=== PATIENT | female | born 1960 | race Caucasian/White ===

== ENCOUNTER → 2017-11-20 15:38 | Outpatient (CLI) | payer OTHER, SELFPAY ==
--- NOTE | 2017-11-20 | DI.CT.S_ITS ---
PROCEDURE: CT SINUS SCREEN WO CON INDICATIONS: CHRONIC SINITUS AND HEADACHE TECHNIQUE: Noncontrast 3.0 mm axial images acquired from the frontal sinuses to the mid-sella, with coronal and sagittal reformats. For radiation dose reduction, the following was used: automated exposure control, adjustment of mA and/or kV according to patient size. COMPARISON: None. FINDINGS: Image quality: Excellent. Maxillary Sinuses: No bony remodeling or destruction. Sinuses are clear. Ethmoid Air Cells: No bony remodeling or destruction. Sinuses are clear. Sphenoid Sinuses: No bony remodeling or destruction. Sinuses are clear. Frontal Sinuses: No bony remodeling or destruction. Sinuses are clear. Ostiomeatal Complexes: Bilateral antrectomy has been performed. No Jose cells. Miscellaneous: Visualized intra-orbital contents are normal. No bahman bullosa or paradoxical turbinate curvature. Middle turbinectomy has been performed bilaterally. No nasal septal deviation. IMPRESSION: 1. Postsurgical sequelae. 2. No significant sinusitis. Dictated by: Nilam Edouard M.D. on 11/20/2017 at 16:26 Approved by: Nilam Edouard M.D. on 11/20/2017 at 16:27
== END ==
PROVIDERS: Family Provider Nurse Practitioner; PCP Family Medicine; Visit Provider Otolaryngology
DX: J32.9 Chronic sinusitis, unspecified (principal); R51 Headache
CPT/HCPCS: 70486

== ENCOUNTER 2019-05-18 14:38 | Emergency (ER) | payer OTHER, SELFPAY ==
[2019-05-18 14:43] VITALS: BP 158/79; PULSE 68; RESP 16; TEMP 36.4; O2SAT 99
[2019-05-18] MEDS: SODIUM CHLORIDE 0.9% 1,000 ML 1000 ML IV (17:42)
[2019-05-18] MEDS: METOCLOPRAMIDE 10 MG/2 ML INJ IV (17:42)
[2019-05-18] MEDS: KETOROLAC 60 MG/2 ML VIAL 30 MG IV (17:42)
[2019-05-18] MEDS: diphenhydrAMINE 50 MG/ML VIAL IV (17:42)
--- NOTE | 2019-05-18 17:50 | PC.NURSE ---
reports, frontal headache, left eye stabbing pain, sinus congestion. 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
[2019-05-18 19:09] VITALS: BP 127/71; PULSE 77; RESP 18; O2SAT 97
[2019-05-18] MEDS: DEXAMETHASONE 10 MG/ML VIAL IV (19:09)
[2019-05-18] MEDS: HYDROMORPHONE 1 MG INJ IV (20:02)
[2019-05-18] MEDS: SUMAtriptan 6 MG/0.5 ML VIAL SUBCUT (20:07)
--- NOTE | 2019-05-18 20:47 | ED_ITS ---
HPI - Headache <Manisha Elias, RV REPAIR TECHNICIAN-BC - Last Filed: 05/18/19 20:53> General Chief Complaint: Headache Stated Complaint: Migraine x3 days Time Seen by Provider: 05/18/19 17:03 Source: family Mode of arrival: Ambulatory Limitations: no limitations History of Present Illness HPI Narrative: The patient is a 59-year-old female nonsmoker presents with her for chief complaint of migraines. She has history of migraines. She states this 1 has been going on for 3 days. She has tried her Imitrex with no assistance. She complains of photophobia, phonophobia and nausea but no vomiting. She denies any fevers confusion or thunderclap sensation. She states that this is a typical migraine for her, the worse than usual as she does not usually need to come to the emergency department. She denies any numbness, tingling, weakness slurred speech etc. Related Data Home Medications Medication Instructions Recorded Confirmed acetaminophen 325 mg PO PRN #0 04/28/16 01/30/18 sumatriptan succinate [Imitrex] 50 mg PO QDAYP PRN #0 08/04/16 01/30/18 [virtussin a/c 100] #0 12/05/16 01/30/18 krill [id number]-4-dha-epa PO 01/30/18 01/30/18 sodium chloride 5 % eye drops EYE-BOTH ml 01/30/18 01/30/18 Previous Rx's Medication Instructions Recorded erenumab-aooe 140 mg/mL 140 mg SUBCUT QMONTH #1 ml 03/06/19 subcutaneous auto-injector sumatriptan succinate 100 mg tablet 100 mg PO ONCE #12 tab 03/11/19 rizatriptan 10 mg disintegrating See Rx Instructions PO .COMPLEX 04/29/19 tablet #10 tab Allergies Allergy/AdvReac Type Severity Reaction Status Date / Time azithromycin [AZITHROMYCIN] Allergy Severe RASH, Verified 04/29/19 15:18 SWELLING ciprofloxacin [CIPROFLOXACIN] Allergy Intermediate ITCHING Verified 04/29/19 15:18 clarithromycin Allergy Intermediate rash Verified 04/29/19 15:18 [CLARITHROMYCIN] fluconazole [From DIFLUCAN] Allergy Intermediate ITCHING Verified 04/29/19 15:18 Iodine and Iodide Containing Allergy Intermediate RASH, Verified 04/29/19 15:18 Produc ITCHING [IODINE AND IODIDE CONTAINING PRODUC] Milk Containing Products Allergy Intermediate POSITIVE Verified 04/29/19 15:18 [MILK CONTAINING PRODUCTS] SCRATCH TEST sulfamethoxazole Allergy Intermediate RASH, Verified 04/29/19 15:18 [SULFAMETHOXAZOLE] ITCHING topiramate [From TOPAMAX] Allergy Intermediate ITCHING Verified 04/29/19 15:18 coffee (Coffea arabica) Allergy Mild SKIN TEST Verified 04/29/19 15:18 [COFFEE (COFFEA ARABICA)] REACTION AT 'S OFFICE gluten [GLUTEN] Allergy Unknown GI UPSET, Verified 04/29/19 15:18 MIGRAINES clavulanic acid AdvReac Mild DIARRHEA Verified 04/29/19 15:18 [CLAVULANIC ACID] BEE STINGS Allergy Intermediate RASH/SWELLI Uncoded 04/29/19 15:18 NG Review of Systems <DAX Becker - Last Filed: 05/18/19 20:53> Review of Systems Narrative: GENERAL: Denies chills, fatigue, malaise, fever, sweats. HEENT: Denies sinus pain, ear pain, sore throat, difficulty swallowing, dizziness. RESPIRATORY: Denies dyspnea, cough, wheezing, hemoptysis, sputum. CARDIOVASCULAR: Denies chest pain, palpitations, orthopnea, edema, GASTROINTESTINAL: Denies nausea, vomiting, abdominal pain, diarrhea, constipation, melena. : Denies dysuria, frequency, incontinence, hematuria, urinary retention. MUSCULOSKELETAL: denies weakness, joint pain, or bony pain SKIN: Denies rash, skin lesions, or other NEUROLOGIC: See HPI PSYCHIATRIC: No concerning psychosocial issues. 12 point review of systems is negative except for those stated above Patient History <DAX Becker - Last Filed: 05/18/19 20:53> Surgical History History of spinal fusion Status post delivery Status post delivery Status post endometrial ablation Status post rotator cuff repair Family History Father Age: 84 Hx of heart artery stent Mother Age: 80 Glaucoma Social History Smoking Status: Never smoker Exam <NAPOLEON BeckerBC - Last Filed: 05/18/19 20:53> Narrative Exam Narrative: GENERAL: This is a well-nourished, well-developed patient, appears uncomfortable HEAD: Atraumatic. Normocephalic. No temporal or scalp tenderness. EYES: Pupils equal round and reactive. Extraocular motions intact. No scleral icterus. No injection or drainage. ENT: Nose without bleeding, purulent drainage or septal hematoma. Throat without erythema, tonsillar hypertrophy or exudate. Uvula midline. Airway patent. NECK: Trachea midline. No JVD or lymphadenopathy. Supple, nontender, no meningeal signs. CARDIOVASCULAR: Regular rate and rhythm without murmurs, gallops, or rubs. RESPIRATORY: Clear to auscultation. Breath sounds equal bilaterally. No wheezes, rales, or rhonchi. GASTROINTESTINAL: Abdomen soft, non-tender, nondistended. No hepato- splenomegaly, or palpable masses. No guarding. EXTREMITIES: No clubbing, cyanosis, or edema. No joint tenderness, effusion, or edema noted. BACK: Nontender without deformity or crepitance. No flank tenderness. NEURO: AOx3. Strength is equal upper and lower extremities bilaterally. No gross cranial nerve deficit. Clear speech. SKIN: No rash or erythema. Initial Vital Signs Initial Vital Signs: Vital Signs Temperature 97.5 F L 05/18/19 14:43 Pulse Rate 68 05/18/19 14:43 Respiratory Rate 16 05/18/19 14:43 Blood Pressure 158/79 H 05/18/19 14:43 Pulse Oximetry 99 05/18/19 14:43 <Manisha Parkinson DO - Last Filed: 05/18/19 21:59> Initial Vital Signs Initial Vital Signs: Vital Signs Temperature 97.5 F L 05/18/19 14:43 Pulse Rate 68 05/18/19 14:43 Respiratory Rate 16 05/18/19 14:43 Blood Pressure 158/79 H 05/18/19 14:43 Pulse Oximetry 99 05/18/19 14:43 Course <DAX Becker - Last Filed: 05/18/19 20:53> Orders Ordered: Discontinued Medications Dexamethasone (Decadron) 10 mg IV NOW ONE Stop: 05/18/19 18:52 Last Admin: 05/18/19 19:09 Dose: 10 mg Documented by: KEITH Diphenhydramine HCl (Benadryl) 50 mg IV NOW ONE Stop: 05/18/19 17:24 Last Admin: 05/18/19 17:42 Dose: 50 mg Documented by: KEITH Hydromorphone HCl (Dilaudid) 1 mg IV NOW ONE Stop: 05/18/19 19:43 Last Admin: 05/18/19 20:02 Dose: 1 mg Documented by: VANESSA Sodium Chloride (Normal Saline 0.9%) 1,000 mls @ 1,000 mls/hr IV BOLUS ONE Stop: 05/18/19 18:22 Last Infusion: 05/18/19 20:14 Dose: 0 mls/hr Documented by: Admin: 05/18/19 17:42 Dose: 1,000 mls/hr Documented by: KEITH Ketorolac Tromethamine (Toradol) 30 mg IV NOW ONE Stop: 05/18/19 17:24 Last Admin: 05/18/19 17:42 Dose: 30 mg Documented by: KEITH Metoclopramide HCl (Reglan) 10 mg IV NOW ONE Stop: 05/18/19 17:24 Last Admin: 05/18/19 17:42 Dose: 10 mg Documented by: KEITH Sumatriptan Succinate (Imitrex) 6 mg SUBCUT NOW ONE Stop: 05/18/19 19:43 Last Admin: 05/18/19 20:07 Dose: 6 mg Documented by: VANESSA Vital Signs Vital signs: Vital Signs - 8 hr 05/18/19 14:43 05/18/19 19:09 05/18/19 21:03 Temperature 97.5 F L Pulse Rate 68 77 63 Respiratory Rate 16 18 15 Blood Pressure 158/79 H 114/63 Blood Pressure [Left Arm] 127/71 Pulse Oximetry 99 97 93 <Manisha Parkinson, - Last Filed: 05/18/19 21:59> Orders Ordered: Discontinued Medications Dexamethasone (Decadron) 10 mg IV NOW ONE Stop: 05/18/19 18:52 Last Admin: 05/18/19 19:09 Dose: 10 mg Documented by: HARRISONSENIvy Diphenhydramine HCl (Benadryl) 50 mg IV NOW ONE Stop: 05/18/19 17:24 Last Admin: 05/18/19 17:42 Dose: 50 mg Documented by: HARRISONSENIvy Hydromorphone HCl (Dilaudid) 1 mg IV NOW ONE Stop: 05/18/19 19:43 Last Admin: 05/18/19 20:02 Dose: 1 mg Documented by: VANESSA Sodium Chloride (Normal Saline 0.9%) 1,000 mls @ 1,000 mls/hr IV BOLUS ONE Stop: 05/18/19 18:22 Last Infusion: 05/18/19 20:14 Dose: 0 mls/hr Documented by: Admin: 05/18/19 17:42 Dose: 1,000 mls/hr Documented by: HARRISONSENIvy Ketorolac Tromethamine (Toradol) 30 mg IV NOW ONE Stop: 05/18/19 17:24 Last Admin: 05/18/19 17:42 Dose: 30 mg Documented by: HARRISONSENIvy Metoclopramide HCl (Reglan) 10 mg IV NOW ONE Stop: 05/18/19 17:24 Last Admin: 05/18/19 17:42 Dose: 10 mg Documented by: KEITH Sumatriptan Succinate (Imitrex) 6 mg SUBCUT NOW ONE Stop: 05/18/19 19:43 Last Admin: 05/18/19 20:07 Dose: 6 mg Documented by: VANESSA Vital Signs Vital signs: Vital Signs - 8 hr 05/18/19 14:43 05/18/19 19:09 05/18/19 21:03 Temperature 97.5 F L Pulse Rate 68 77 63 Respiratory Rate 16 18 15 Blood Pressure 158/79 H 114/63 Blood Pressure [Left Arm] 127/71 Pulse Oximetry 99 97 93 MDM - Headache <TALISHA Becker-BC - Last Filed: 05/18/19 20:53> MDM Narrative Medical decision making narrative: The patient is a 59-year-old female who presents with a chief complaint of a migraine for the past 3 days. She has a history of migraines, this correlates with that and she had a thunderclap sensation neurological deficit. Thus we elected to defer a CT scan at this point time. She responded very well to IV fluids and migraine medications. I encouraged follow-up with her primary care as well as her headache specialist. Discussed coming back to the emergency department for any acute concerns such as confusion etc. Patient has been of no questions or concerns upon discharge and state understanding of return precautions as well as follow-up care. Discharge Plan Departure Patient Disposition: Home Clinical Impression: Migraine Qualifiers: Migraine type: unspecified Status migrainosus presence: with status migrainosus Intractability: not intractable Qualified Code(s): G43.901 - Migraine, unspecified, not intractable, with status migrainosus Discharge Date/Time: 05/18/19 21:04 Instructions: DI for Migraine, DI for Headache Activity Restrictions/Additional Instructions: Please rest and push fluids.. Be aware that the medications that we gave you can make you drowsy, so do not drive. Please follow up with primary care provider as well as her headache specialist. Please come back to emergency department for any acute concerns such as concern of heart attack or stroke, confusion etc Prescriptions: No Action acetaminophen 325 MG tablet 325 mg PO PRNQty: 0 RF: 0 sumatriptan succinate [Imitrex] 50 MG tablet 50 mg PO QDAYP PRNQty: 0 RF: 0 [virtussin a/c 100] Qty: 0 RF: 0 Aimovig Autoinjector 140 mg/mL auto-injector 140 mg SUBCUT QMONTH Qty: 1 RF: 3 sumatriptan succinate 100 mg tablet 100 mg PO ONCE Qty: 12 RF: 1 krill zbw-shzpb-2-dha-epa PO RF: 0 sodium chloride [Kelly 128] 5 % drops EYE-BOTH RF: 0 rizatriptan [Maxalt-[employer]] 10 mg tablet,disintegrating See Rx Instructions PO .COMPLEX Qty: 10 RF: 5 Referrals: Faraz Chavarria MD [Primary Care Provider] -
[2019-05-18 21:03] VITALS: BP 114/63; PULSE 63; RESP 15; O2SAT 93
== END 2019-05-18 21:04 | disposition home or self-care (01) ==
PROVIDERS: Emergency Provider Nurse Practitioner Family; Family Provider Nurse Practitioner; PCP Family Medicine
DX: G43.901 Migraine, unspecified, not intractable, with status migrainosus (principal)
CPT/HCPCS: 96361; 96372; 96374; 96375; 99283; J1100; J1170; J1200; J1885; J2765; J3030

== ENCOUNTER → 2020-04-09 10:47 | Outpatient (CLI) | payer OTHER, SELFPAY ==
--- NOTE | 2020-04-09 | DI.US.S_ITS ---
PROCEDURE: US THYROID INDICATIONS: Nontoxic goiter, unspecified TECHNIQUE: Real-time scanning was performed of the thyroid gland, with image documentation. COMPARISON: None. FINDINGS: Right: Thyroid lobe measures 5.6 x 1.0 x 1.8 cm, and is homogeneous in echotexture. 2 sub 5 mm nodules. Left: Thyroid lobe measures 4.8 x 1.1 x 1.8 cm, and is homogenous in echotexture. Isthmus: 2.0 mm thick. Nodule number: 1 Location: Left mid Size: 0.8 x 0.5 x 0.6 cm. Composition: Solid Echogenicity: Hypoechoic Shape: wider than tall. Margins: Smooth Echogenic foci: None Total points: 4 ACR TI-RADS category: Moderately suspicious IMPRESSION: Subcentimeter nodules bilaterally. Given the small size, no follow-up is warranted. ACR TI-RADS definitions and recommendations: TI-RADS 1 (benign): 0 points. FNA not needed. TI-RADS 2 (not suspicious): 2 points. FNA not needed. TI-RADS 3 (mildly suspicious): 3 points. * FNA if 2.5 cm or larger, follow up if 1.5 cm or larger (at 1, 3, and 5 years). TI-RADS 4 (moderately suspicious): 4-6 points. * FNA if 1.5 cm or larger, follow up if 1 cm or larger (at 1, 2, 3, and 5 years). TI-RADS 5 (highly suspicious): 7 points or more. * FNA if 1 cm or larger, follow up if 0.5 cm or larger (every year for 5 years). Dictated by: Fuentes Jasmine [facility] Interpreted: Александр Burciaga MD on 04/09/2020 at 13:07 Approved by: Александр Burciaga M.D. on 04/09/2020 at 17:03
== END ==
PROVIDERS: Family Provider Nurse Practitioner; PCP Nurse Practitioner Family; Referring Provider Nurse Practitioner Family; Visit Provider Nurse Practitioner Family
DX: E04.2 Nontoxic multinodular goiter (principal)
CPT/HCPCS: 76536

== ENCOUNTER → 2020-05-07 12:48 | Outpatient (CLI) | payer OTHER, SELFPAY ==
--- NOTE | 2020-05-07 12:49 | DI.CT.S_ITS ---
PROCEDURE: CT SINUS SCREEN WO CON INDICATIONS: Chronic sinusitis, unspecified TECHNIQUE: Noncontrast 3.0 mm axial images acquired from the frontal sinuses to the mid-sella, with coronal and sagittal reformats. For radiation dose reduction, the following was used: automated exposure control, adjustment of mA and/or kV according to patient size. COMPARISON: [facility], CT, CT SINUS WO CON, 11/16/2016, 14:02. [facility], CT, CT SINUS SCREEN WO CON, 11/20/2017, 15:41. FINDINGS: Image quality: Excellent. Maxillary Sinuses: The medial reaves of the maxillary sinuses have been removed. Minimal mucosal thickening is seen within the maxillary sinuses. Ethmoid Air Cells: A few ethmoid air cell septations have been removed. Sinuses are clear. Sphenoid Sinuses: No bony remodeling or destruction. Sinuses are clear. Frontal Sinuses: No bony remodeling or destruction. Sinuses are clear. Ostiomeatal Complexes: Removed. Miscellaneous: Visualized intra-orbital contents are normal. Portions of the middle turbinates have been removed, right more prominent than left. There is minimal leftward nasal septal deviation. IMPRESSION: Postoperative change, with bilateral antrectomy, with removal of portions of the medial reaves of the maxillary sinuses. A few of the ethmoid air cell septations have been removed. Portions of the middle turbinates have also been removed. Minimal mucosal thickening is seen within the maxillary sinuses. Dictated by: Evaristo Guardado M.D. on 05/07/2020 at 13:01 Approved by: Evaristo Guardado M.D. on 05/07/2020 at 13:03
== END ==
PROVIDERS: Family Provider Nurse Practitioner; PCP Nurse Practitioner Family; Referring Provider Nurse Practitioner Family; Visit Provider Nurse Practitioner Family
DX: J32.9 Chronic sinusitis, unspecified (principal)
CPT/HCPCS: 70486

== ENCOUNTER → 2020-07-23 07:58 | Outpatient (CLI) | payer OTHER, SELFPAY ==
--- NOTE | 2020-07-23 | DI.US.S_ITS ---
PROCEDURE: US THYROID INDICATIONS: FOLLOW-UP NODULE TECHNIQUE: Real-time scanning was performed of the thyroid gland, with image documentation. COMPARISON: [facility], US, US THYROID, 04/09/2020, 11:34. FINDINGS: Right: Thyroid lobe measures 5.2 x 1.4 x 1.3 cm, and is homogeneous in echotexture. There are 2 sub 5 mm colloid cyst. Left: Thyroid lobe measures 5.3 x 1.3 x 1.6 cm, and is homogenous in echotexture. Isthmus: 7.0 mm thick. Nodule number: 1 Location: Left mid Size: Stable at 0.8 x 0.6 x 0.5 cm. Composition: Solid Echogenicity: Hypoechoic Shape: wider than tall. Margins: Smooth Echogenic foci: None Total points: 4 ACR TI-RADS category: Moderately suspicious IMPRESSION: Subcentimeter left thyroid nodule. Given the small size, no follow-up is warranted. ACR TI-RADS definitions and recommendations: TI-RADS 1 (benign): 0 points. FNA not needed. TI-RADS 2 (not suspicious): 2 points. FNA not needed. TI-RADS 3 (mildly suspicious): 3 points. * FNA if 2.5 cm or larger, follow up if 1.5 cm or larger (at 1, 3, and 5 years). TI-RADS 4 (moderately suspicious): 4-6 points. * FNA if 1.5 cm or larger, follow up if 1 cm or larger (at 1, 2, 3, and 5 years). TI-RADS 5 (highly suspicious): 7 points or more. * FNA if 1 cm or larger, follow up if 0.5 cm or larger (every year for 5 years). Dictated by: Fuentes Jasmine [facility] Interpreted: James Gould MD on 07/23/2020 at 15:59 Approved by: James Gould M.D. on 07/23/2020 at 16:45
== END ==
PROVIDERS: Family Provider Nurse Practitioner; PCP Nurse Practitioner Family; Referring Provider Nurse Practitioner Family; Visit Provider Nurse Practitioner Family
DX: E04.1 Nontoxic single thyroid nodule (principal)
CPT/HCPCS: 76536

== ENCOUNTER → 2021-04-06 12:26 | Outpatient (CLI) | payer OTHER, SELFPAY ==
--- NOTE | 2021-04-06 | DI.US.S_ITS ---
PROCEDURE: US THYROID INDICATIONS: ENLARGED THYROID TECHNIQUE: Real-time scanning was performed of the thyroid gland, with image documentation. COMPARISON: [facility], US, US THYROID, 07/23/2020, 8:28. FINDINGS: Right: Thyroid lobe measures 5.4 x 1.7 x 1 cm, and is homogeneous in echotexture. Blood flow is prominent. Left: Thyroid lobe measures 6 x 1.9 x 1.2 cm, and is homogenous in echotexture. Blood flow is prominent. Isthmus: 0.3 cm thick. Nodule number: 1 Location: Left mid Size: 0.8 x 0.6 x 0.5 cm. Unchanged. Composition: Solid Echogenicity: Hypoechoic Shape: wider than tall. Margins: Smooth Echogenic foci: None Total points: 4 ACR TI-RADS category: TR 4, moderately suspicious. IMPRESSION: 1. Prominent size of the thyroid gland. Prominent blood flow. 2. Small left mid thyroid nodule measuring 0.8 cm. TR 4, moderately suspicious. Follow-up for this nodule is not required. ACR TI-RADS definitions and recommendations: TI-RADS 1 (benign): 0 points. FNA not needed. TI-RADS 2 (not suspicious): 2 points. FNA not needed. TI-RADS 3 (mildly suspicious): 3 points. * FNA if 2.5 cm or larger, follow up if 1.5 cm or larger (at 1, 3, and 5 years). TI-RADS 4 (moderately suspicious): 4-6 points. * FNA if 1.5 cm or larger, follow up if 1 cm or larger (at 1, 2, 3, and 5 years). TI-RADS 5 (highly suspicious): 7 points or more. * FNA if 1 cm or larger, follow up if 0.5 cm or larger (every year for 5 years). Dictated by: Walker Saavedra M.D. on 04/06/2021 at 13:43 Approved by: Walker Saavedra M.D. on 04/06/2021 at 13:48
== END ==
PROVIDERS: Family Provider Nurse Practitioner; PCP Nurse Practitioner Family; Referring Provider Nurse Practitioner Family; Visit Provider Nurse Practitioner Family
DX: E04.9 Nontoxic goiter, unspecified (principal); E04.1 Nontoxic single thyroid nodule
CPT/HCPCS: 76536

== ENCOUNTER → 2022-11-21 10:13 | Outpatient (CLI) | payer OTHER, SELFPAY ==
--- NOTE | 2022-11-21 | DI.US.S_ITS ---
PROCEDURE: US THYROID INDICATIONS: Nontoxic single thyroid nodule TECHNIQUE: Real-time scanning was performed of the thyroid gland, with image documentation. COMPARISON: [facility], US, US THYROID, 04/06/2021, 12:49. FINDINGS: Right: Thyroid lobe measures 5.5 x 1.7 x 1.0 cm, and is homogeneous in echotexture. Left: Thyroid lobe measures 5.6 x 1.9 x 1.2 cm, and is homogenous in echotexture. Isthmus: 2 mm thick. Nodule number: 1 Location: Left mid Size: 0.8 x 0.6 x 0.6 cm. Previously measured 0.8 x 0.5 x 0.6 cm on the study dated April 06, 2021 Composition: Solid Echogenicity: Hypoechoic Shape: wider than tall. Margins: Smooth Echogenic foci: None Total points: 4 ACR TI-RADS category: 4. No further follow-up recommended given small size. IMPRESSION: Solitary thyroid nodule. Given subcentimeter size, no further follow-up recommended. ACR TI-RADS definitions and recommendations: TI-RADS 1 (benign): 0 points. FNA not needed. TI-RADS 2 (not suspicious): 2 points. FNA not needed. TI-RADS 3 (mildly suspicious): 3 points. * FNA if 2.5 cm or larger, follow up if 1.5 cm or larger (at 1, 3, and 5 years). TI-RADS 4 (moderately suspicious): 4-6 points. * FNA if 1.5 cm or larger, follow up if 1 cm or larger (at 1, 2, 3, and 5 years). TI-RADS 5 (highly suspicious): 7 points or more. * FNA if 1 cm or larger, follow up if 0.5 cm or larger (every year for 5 years). Dictated by: Kerri Jackman M.D. on 11/21/2022 at 12:19 Approved by: Kerri Jackman M.D. on 11/21/2022 at 12:21
== END ==
PROVIDERS: Family Provider Nurse Practitioner; PCP Nurse Practitioner Family; Referring Provider Nurse Practitioner Family; Visit Provider Nurse Practitioner Family
DX: E04.1 Nontoxic single thyroid nodule (principal)
CPT/HCPCS: 76536